=== PATIENT | male | born 1935 | race Caucasian/White ===

== ENCOUNTER → 2021-02-02 | Outpatient (REF) | payer MEDICARE, BC ==
[~2021-02-02] MED LIST: BENI1TAB3 PO
== END ==
LOC: M LAB REF 13:59
PROVIDERS: ATTEND Physician Assistant
DX: C44.41 Basal cell carcinoma of skin of scalp and neck (principal)
CPT/HCPCS: 11102; 17000; 17003; 88305; G0463